=== PATIENT | male | born 1970 | race Caucasian/White ===

== ENCOUNTER 2022-01-02 09:15 | Inpatient (IN) | payer MEDICAID, OTHER ==
[~2022-01-02] VITALS: Ht 167.6 cm; Wt 92.5 kg
[~2022-01-02 09:15] MED LIST: ETOMIDATE 2MG/ML 10ML VIAL IV ONE; SUCCINYLCHOLINE CHLORIDE 200MG/10ML IV ONE
[2022-01-02 09:47] LABS: HEMATOCRIT. 28.8 % (42.0-52.0); MEAN CORPUSCULAR HEMOGLOBIN 35.8 pg (28.0-32.0); MEAN CORPUSCULAR VOLUME 103.5 fL (80.0-94.0); MEAN PLATELET VOLUME 7.6 fl (7.4-10.4); RED BLOOD CELL COUNT 2.78 mill/uL (4.7-6.1); RED CELL DISTRIBUTION WIDTH 16.4 % (11.6-14.6)
[2022-01-02 09:53] LABS: CHLORIDE 111 mEq/L (98-107)
[2022-01-02 10:01] LABS: PLATELET 37 x1000/uL (130-400)
[2022-01-02 10:11] LABS: ETHANOL BLOOD 410 mg/dL
[2022-01-02 10:40] LABS: PLATELET ESTIMATE MARKEDLY DECREASED
[2022-01-02] MEDS ORDERED: SODIUM CHLORIDE 0.9% 1,000 ML IV ONE ×2 (11:45→19:00)
[2022-01-02] MEDS ORDERED: LORAZEPAM 2MG/ML CPJ IV ONE ×2 (19:00→19:45)
[2022-01-02] MEDS ORDERED: CHLORDIAZEPOXIDE 25MG CAPSULE PO ONE (19:00)
[2022-01-02] MEDS ORDERED: DIAZEPAM 5 MG/ML 2ML CPJ IV PRN ×2 (20:00→20:30)
[2022-01-02] MEDS ORDERED: HYDROMORPHONE HCL/PF 2MG/ML CPJ IV ONE (20:00)
[2022-01-02] MEDS ORDERED: IPRATROPIUM/ALBUTEROL 0.5-3(2.5)MG/3ML NEB NEB PRN (21:00)
[2022-01-02] MEDS ORDERED: LORAZEPAM 2MG/ML CPJ IV PRN (21:00)
[2022-01-02] MEDS ORDERED: ACETAMINOPHEN 325MG TABLET PO PRN (21:00)
[2022-01-02] MEDS ORDERED: DOCUSATE SODIUM 100MG CAPSULE PO PRN (21:00)
[2022-01-02] MEDS ORDERED: MAGNESIUM/ALUMINUM HYDROXIDE/SIMETHICONE 30ML UDC PO PRN (21:00)
[2022-01-02] MEDS ORDERED: ONDANSETRON HCL 4MG/2ML INJ IV PRN (21:00)
[2022-01-02] MEDS ORDERED: GUAIFENESIN 200MG/10ML SUGAR FREE UDC PO PRN (21:00)
[2022-01-02] MEDS ORDERED: NITROGLYCERIN 0.4MG TABLET SL SL PRN (21:00)
[2022-01-02] MEDS ORDERED: CLONIDINE 0.1MG TABLET PO PRN (21:00)
[2022-01-02] MEDS ORDERED: PHENOBARBITAL SODIUM 65MG/ML 1ML IV ONE (21:30)
[2022-01-02] MEDS ORDERED: KCL 20MEQ/100ML PREMIX 100 ML IV NR (21:30)
[2022-01-02 21:45] LABS: TOTAL IRON BINDING CAPACITY 158 ug/dL (250-450)
[2022-01-02] MEDS ORDERED: MVI, ADULT NO.1 10 ML, FOLIC ACID 1 MG, THIAMINE HCL 100 MG in SODIUM CHLORIDE 0.9% 1,0... IV SCH ×4 (22:00)
[2022-01-02 22:07] LABS: FOLIC ACID (FOLATE) SERUM 3.9 ng/mL (>5.38)
[2022-01-02] MEDS: CHLORDIAZEPOXIDE 25MG CAPSULE PO SCH (23:37)
[2022-01-02 23:51] LABS: CREATINE KINASE 50 IU/L (39-308)
[2022-01-02 23:52] LABS: CREATINE KINASE MB FRACTION < 1.0 ng/mL (0.5-3.6)
[2022-01-03] VITALS (58 sets, daily range): BP systolic 79–147; BP diastolic 44–87
[2022-01-03] MEDS ORDERED: PHENOBARBITAL SODIUM 65MG/ML 1ML IV SCH
[2022-01-03] MEDS ORDERED: PHENOBARBITAL SODIUM 130MG/ML 1ML IV SCH (01:15)
[2022-01-03] MEDS ORDERED: ETOMIDATE 2MG/ML 10ML VIAL IV ONE (03:30)
[2022-01-03] MEDS ORDERED: SUCCINYLCHOLINE CHLORIDE 200MG/10ML IV ONE (03:30)
[2022-01-03] MEDS ORDERED: PROPOFOL 10MG/ML 100ML 100 ML IV ONE (03:45)
[2022-01-03] MEDS ORDERED: LORAZEPAM 2MG/ML CPJ IV ONE (03:45)
[2022-01-03 04:32] LABS: BG BASE EXCESS -5.6 mmol/L (-2.0-2.0); BG CARBOXYHEMOGLOBIN 0.3 % (0.5-1.5); BG DEOXYHEMOGLOBIN 3.1 % (0.0-5.0); BG FRACTION INSPIRED OXYGEN 80; BG HCO3 ACT 17.5 mmol/L (22.0-26.0); BG METHEMOGLOBIN 1.4 % (0.0-1.5); BG OXYGEN SATURATION 96.8 % (92.0-98.5); BG OXYHEMOGLOBIN 95.2 % (94.0-97.0); BG PCO2 27.3 mmHg (35.0-45.0); BG PH 7.425 (7.350-7.450); BG PO2 102.4 mmHg (75.0-100.0); BG SAMPLE SITE LEFT RADIAL; BG TOTAL HEMOGLOBIN 11.3 g/dL (12.0-18.0); BG VENT MODE VENT - AC
[2022-01-03] MEDS: CHLORDIAZEPOXIDE 25MG CAPSULE PO SCH ×4 (06:00→21:34)
[2022-01-03 08:47] LABS: CHLORIDE 114 mEq/L (98-107)
[2022-01-03 08:53] LABS: PHOSPHORUS 2.8 mg/dL (2.5-4.9)
[2022-01-03 08:55] LABS: CREATINE KINASE 70 IU/L (39-308)
[2022-01-03 08:56] LABS: CREATINE KINASE MB FRACTION < 1.0 ng/mL (0.5-3.6)
[2022-01-03 09:08] LABS: HEMATOCRIT. 27.8 % (42.0-52.0); HEMOGLOBIN. 9.5 g/dL (14.0-18.0); MEAN CORPUSCULAR HEMOGLOBIN 35.4 pg (28.0-32.0); MEAN CORPUSCULAR VOLUME 103.5 fL (80.0-94.0); MEAN PLATELET VOLUME 8.4 fl (7.4-10.4); RED BLOOD CELL COUNT 2.68 mill/uL (4.7-6.1); RED CELL DISTRIBUTION WIDTH 16.6 % (11.6-14.6)
[2022-01-03 09:19] LABS: BG BASE EXCESS -2.7 mmol/L (-2.0-2.0); BG CARBOXYHEMOGLOBIN 0.3 % (0.5-1.5); BG DEOXYHEMOGLOBIN 2.1 % (0.0-5.0); BG FRACTION INSPIRED OXYGEN 80; BG HCO3 ACT 19.7 mmol/L (22.0-26.0); BG METHEMOGLOBIN 0.2 % (0.0-1.5); BG OXYGEN SATURATION 97.9 % (92.0-98.5); BG OXYHEMOGLOBIN 97.4 % (94.0-97.0); BG PCO2 26.6 mmHg (35.0-45.0); BG PH 7.488 (7.350-7.450); BG PO2 106.7 mmHg (75.0-100.0); BG SAMPLE SITE LEFT RADIAL; BG TOTAL HEMOGLOBIN 9.8 g/dL (12.0-18.0); BG VENT MODE VENT - AC
[2022-01-03] MEDS: PANTOPRAZOLE SODIUM 40 MG/VIAL IV SCH (09:23)
[2022-01-03] MEDS: PROPOFOL 10MG/ML 100ML 100 ML IV PRN ×4 (09:25→21:41)
[2022-01-03] MEDS: FENTANYL 2500MCG/250ML PMX 250 ML IV PRN (09:26)
[2022-01-03 10:36] LABS: PLATELET ESTIMATE MARKEDLY DECREASED
[2022-01-03 10:37] LABS: PLATELET 25 x1000/uL (130-400)
[2022-01-03] MEDS ORDERED: PROPOFOL 10MG/ML 100ML 100 ML IV PRN (10:45)
[2022-01-03 11:48] LABS: INR 1.8; PROTHROMBIN TIME 18.8 sec (9.6-11.0)
[2022-01-03] MEDS ORDERED: MAGNESIUM 4 G PREMIX 100 ML IV NR (12:30)
[2022-01-03] MEDS: CEFTRIAXONE 1,000 MG in DEXTROSE 5% WATER 50 ML IV SCH (13:13)
[2022-01-03] MEDS: ACETAMINOPHEN 325MG TABLET PO PRN (21:34)
[2022-01-03] MEDS: NOREPINEPHRINE 8 MG in DEXT 5% WATER 242 ML IV PRN (22:08)
[2022-01-04] VITALS (57 sets, daily range): BP systolic 83–128; BP diastolic 41–68
[2022-01-04] MEDS: NOREPINEPHRINE 8 MG in DEXT 5% WATER 242 ML IV PRN (05:44)
[2022-01-04] MEDS: ACETAMINOPHEN 325MG TABLET PO PRN (05:45)
[2022-01-04] MEDS: CHLORDIAZEPOXIDE 25MG CAPSULE PO SCH ×3 (05:45→22:00)
[2022-01-04 08:39] LABS: BG BASE EXCESS -1.6 mmol/L (-2.0-2.0); BG CARBOXYHEMOGLOBIN 0.3 % (0.5-1.5); BG FRACTION INSPIRED OXYGEN 60; BG HCO3 ACT 22.7 mmol/L (22.0-26.0); BG METHEMOGLOBIN 0.2 % (0.0-1.5); BG OXYHEMOGLOBIN 93.5 % (94.0-97.0); BG PCO2 36.7 mmHg (35.0-45.0); BG PO2 76.8 mmHg (75.0-100.0); BG SAMPLE SITE RIGHT RADIAL; BG TOTAL HEMOGLOBIN 10.1 g/dL (12.0-18.0); BG VENT MODE VENT - AC
[2022-01-04] MEDS: PANTOPRAZOLE SODIUM 40 MG/VIAL IV SCH (09:32)
[2022-01-04] MEDS: PROPOFOL 10MG/ML 100ML 100 ML IV PRN ×2 (09:40→11:19)
[2022-01-04] MEDS ORDERED: PROPOFOL 10MG/ML 100ML 100 ML IV PRN ×2 (10:40→11:58)
[2022-01-04] MEDS: MIDODRINE HCL 5MG TABLET PO SCH ×2 (11:18→19:06)
[2022-01-04 11:38] LABS: HEMATOCRIT. 28.5 % (42.0-52.0); HEMOGLOBIN. 9.7 g/dL (14.0-18.0); MEAN CORPUSCULAR HEMOGLOBIN 35.3 pg (28.0-32.0); MEAN CORPUSCULAR VOLUME 103.5 fL (80.0-94.0); MEAN PLATELET VOLUME 9.2 fl (7.4-10.4); RED BLOOD CELL COUNT 2.75 mill/uL (4.7-6.1); RED CELL DISTRIBUTION WIDTH 16.9 % (11.6-14.6)
[2022-01-04 11:46] LABS: PLATELET 37 x1000/uL (130-400)
[2022-01-04 11:58] LABS: CHLORIDE 111 mEq/L (98-107)
[2022-01-04 12:03] LABS: PHOSPHORUS 2.7 mg/dL (2.5-4.9)
[2022-01-04] MEDS: SODIUM CHLORIDE 0.45% 1,000 ML IV SCH (13:55)
[2022-01-04] MEDS: CEFTRIAXONE 1,000 MG in DEXTROSE 5% WATER 50 ML IV SCH (13:56)
[2022-01-04 15:48] LABS: PLATELET ESTIMATE MARKEDLY DECREASED
[2022-01-05] VITALS (76 sets, daily range): BP systolic 83–154; BP diastolic 39–81
[2022-01-05] MEDS: NOREPINEPHRINE 8 MG in DEXT 5% WATER 242 ML IV PRN (00:02)
[2022-01-05] MEDS: MIDODRINE HCL 5MG TABLET PO SCH ×3 (04:38→22:19)
[2022-01-05] MEDS: ACETAMINOPHEN 325MG TABLET PO PRN (04:39)
[2022-01-05] MEDS: CHLORDIAZEPOXIDE 25MG CAPSULE PO SCH ×3 (05:18→22:18)
[2022-01-05 06:13] LABS: HEMATOCRIT. 27.5 % (42.0-52.0); HEMOGLOBIN. 9.4 g/dL (14.0-18.0); MEAN CORPUSCULAR HEMOGLOBIN 35.6 pg (28.0-32.0); MEAN CORPUSCULAR VOLUME 104.7 fL (80.0-94.0); MEAN PLATELET VOLUME 8.8 fl (7.4-10.4); RED BLOOD CELL COUNT 2.62 mill/uL (4.7-6.1); RED CELL DISTRIBUTION WIDTH 15.9 % (11.6-14.6)
[2022-01-05 06:14] LABS: CHLORIDE 109 mEq/L (98-107)
[2022-01-05 06:21] LABS: PHOSPHORUS 1.7 mg/dL (2.5-4.9)
[2022-01-05 06:43] LABS: PLATELET 38 x1000/uL (130-400)
[2022-01-05 07:32] LABS: PLATELET ESTIMATE MARKEDLY DECREASED
[2022-01-05 07:39] LABS: BG BASE EXCESS -2.2 mmol/L (-2.0-2.0); BG CARBOXYHEMOGLOBIN 0.3 % (0.5-1.5); BG METHEMOGLOBIN 0.2 % (0.0-1.5); BG OXYHEMOGLOBIN 93.5 % (94.0-97.0); BG PCO2 35.4 mmHg (35.0-45.0); BG PH 7.411 (7.350-7.450); BG PO2 69.9 mmHg (75.0-100.0); BG SAMPLE SITE RIGHT RADIAL; BG TOTAL HEMOGLOBIN 9.4 g/dL (12.0-18.0); BG VENT MODE VENT - AC
[2022-01-05] MEDS: SODIUM CHLORIDE 0.45% 1,000 ML IV SCH (08:34)
[2022-01-05] MEDS: PANTOPRAZOLE SODIUM 40 MG/VIAL IV SCH (08:35)
[2022-01-05] MEDS ORDERED: LIDOCAINE HCL/PF 1% 10 MG/ML 5ML VIAL ONE (09:58)
[2022-01-05] MEDS ORDERED: POTASSIUM PHOS,M-BASIC-D-BASIC 20 MMOL in DEXT 5% WATER 250 ML IV SCH (10:00)
[2022-01-05] MEDS: CEFTRIAXONE 1,000 MG in DEXTROSE 5% WATER 50 ML IV SCH (13:35)
[2022-01-05] MEDS: METRONIDAZOLE 500 MG PREMIX 100 ML IV SCH (17:39)
[2022-01-05] MEDS: CEFEPIME 2,000 MG in DEXT 5% WATER 100 ML IV SCH (17:39)
[2022-01-05] MEDS: FENTANYL 2500MCG/250ML PMX 250 ML IV PRN (17:40)
[2022-01-06] VITALS (94 sets, daily range): BP systolic 80–133; BP diastolic 40–75
[2022-01-06] MEDS: METRONIDAZOLE 500 MG PREMIX 100 ML IV SCH ×3 (01:52→17:14)
[2022-01-06] MEDS: SODIUM CHLORIDE 0.45% 1,000 ML IV SCH (06:03)
[2022-01-06] MEDS: CEFEPIME 2,000 MG in DEXT 5% WATER 100 ML IV SCH ×2 (06:03→17:14)
[2022-01-06] MEDS: CHLORDIAZEPOXIDE 25MG CAPSULE PO SCH ×3 (06:19→21:24)
[2022-01-06] MEDS: MIDODRINE HCL 5MG TABLET PO SCH ×3 (06:20→21:26)
[2022-01-06] MEDS: PANTOPRAZOLE SODIUM 40 MG/VIAL IV SCH (08:33)
[2022-01-06] MEDS: PROPOFOL 10MG/ML 100ML 100 ML IV PRN ×2 (08:35→17:15)
[2022-01-06 08:45] LABS: BG BASE EXCESS -0.4 mmol/L (-2.0-2.0); BG CARBOXYHEMOGLOBIN 0.3 % (0.5-1.5); BG DEOXYHEMOGLOBIN 5.9 % (0.0-5.0); BG FRACTION INSPIRED OXYGEN 70; BG HCO3 ACT 24.4 mmol/L (22.0-26.0); BG METHEMOGLOBIN 0.8 % (0.0-1.5); BG PCO2 40.5 mmHg (35.0-45.0); BG PH 7.398 (7.350-7.450); BG PO2 69.4 mmHg (75.0-100.0); BG SAMPLE SITE RIGHT RADIAL; BG TOTAL HEMOGLOBIN 9.2 g/dL (12.0-18.0); BG VENT MODE VENT - AC
[2022-01-06] MEDS: ACETYLCYSTEINE 100MG/ML 10% VIAL 4ML INH SCH ×2 (08:55→15:08)
[2022-01-06] MEDS: NOREPINEPHRINE 8 MG in DEXT 5% WATER 242 ML IV PRN (14:48)
[2022-01-06] MEDS: IPRATROPIUM/ALBUTEROL 0.5-3(2.5)MG/3ML NEB HHN SCH ×2 (15:08→20:19)
[2022-01-06 15:37] LABS: HEMATOCRIT. 26.1 % (42.0-52.0); HEMOGLOBIN. 8.9 g/dL (14.0-18.0); MEAN CORPUSCULAR HEMOGLOBIN 35.4 pg (28.0-32.0); MEAN CORPUSCULAR VOLUME 104.2 fL (80.0-94.0); MEAN PLATELET VOLUME 9.2 fl (7.4-10.4); PLATELET 55 x1000/uL (130-400); RED CELL DISTRIBUTION WIDTH 15.6 % (11.6-14.6)
[2022-01-06 15:46] LABS: CHLORIDE 110 mEq/L (98-107)
[2022-01-06 16:30] LABS: PLATELET ESTIMATE DECREASED
[2022-01-06] MEDS: METOCLOPRAMIDE HCL 10MG/2ML VIAL IV SCH (17:14)
[2022-01-06] MEDS ORDERED: METOCLOPRAMIDE HCL 10MG TABLET PO SCH (18:00)
[2022-01-06] MEDS: RIFAXIMIN 550 MG TABLET PO SCH (21:26)
[2022-01-06] MEDS: LACTULOSE 20G/30ML UDC PO SCH (21:26)
[2022-01-07] VITALS (92 sets, daily range): BP systolic 78–137; BP diastolic 38–90
[2022-01-07] MEDS: METOCLOPRAMIDE HCL 10MG/2ML VIAL IV SCH ×4 (00:41→17:12)
[2022-01-07] MEDS: FENTANYL 2500MCG/250ML PMX 250 ML IV PRN (00:43)
[2022-01-07] MEDS: SODIUM CHLORIDE 0.45% 1,000 ML IV SCH (00:44)
[2022-01-07] MEDS: METRONIDAZOLE 500 MG PREMIX 100 ML IV SCH ×3 (01:01→17:13)
[2022-01-07] MEDS: ACETYLCYSTEINE 100MG/ML 10% VIAL 4ML INH SCH ×3 (01:26→16:46)
[2022-01-07] MEDS: IPRATROPIUM/ALBUTEROL 0.5-3(2.5)MG/3ML NEB HHN SCH ×4 (01:26→21:19)
[2022-01-07] MEDS: MIDODRINE HCL 5MG TABLET PO SCH ×3 (05:46→21:05)
[2022-01-07] MEDS: CHLORDIAZEPOXIDE 25MG CAPSULE PO SCH ×3 (05:47→21:05)
[2022-01-07] MEDS: LACTULOSE 20G/30ML UDC PO SCH ×3 (05:47→21:04)
[2022-01-07] MEDS: CEFEPIME 2,000 MG in DEXT 5% WATER 100 ML IV SCH ×2 (05:48→16:51)
[2022-01-07 06:14] LABS: INR 1.8; PROTHROMBIN TIME 18.2 sec (9.6-11.0)
[2022-01-07 06:26] LABS: HEMATOCRIT. 24.6 % (42.0-52.0); HEMOGLOBIN. 8.6 g/dL (14.0-18.0); MEAN CORPUSCULAR VOLUME 103.6 fL (80.0-94.0); MEAN PLATELET VOLUME 10.3 fl (7.4-10.4); PLATELET 63 x1000/uL (130-400); RED BLOOD CELL COUNT 2.37 mill/uL (4.7-6.1); RED CELL DISTRIBUTION WIDTH 16.1 % (11.6-14.6)
[2022-01-07 06:38] LABS: FERRITIN 247 ng/mL (22-322)
[2022-01-07 06:50] LABS: HEPATITIS B SURFACE ANTIGEN NEGATIVE
[2022-01-07 08:20] LABS: BG BASE EXCESS -7.1 mmol/L (-2.0-2.0); BG CARBOXYHEMOGLOBIN 0.3 % (0.5-1.5); BG DEOXYHEMOGLOBIN 5.7 % (0.0-5.0); BG FRACTION INSPIRED OXYGEN 80; BG HCO3 ACT 18.9 mmol/L (22.0-26.0); BG METHEMOGLOBIN 0.3 % (0.0-1.5); BG OXYGEN SATURATION 94.3 % (92.0-98.5); BG OXYHEMOGLOBIN 93.7 % (94.0-97.0); BG PCO2 40.3 mmHg (35.0-45.0); BG PO2 75.5 mmHg (75.0-100.0); BG SAMPLE SITE RIGHT RADIAL; BG TOTAL HEMOGLOBIN 9.2 g/dL (12.0-18.0); BG TOTAL RESPIRATORY RATE 17 b/min; BG VENT MODE VENT - AC
[2022-01-07] MEDS: PANTOPRAZOLE SODIUM 40 MG/VIAL IV SCH (08:35)
[2022-01-07] MEDS: THIAMINE HCL 100MG TABLET PO SCH (08:35)
[2022-01-07] MEDS: FOLIC ACID 1MG TABLET PO SCH (08:35)
[2022-01-07] MEDS: RIFAXIMIN 550 MG TABLET PO SCH ×2 (08:36→21:05)
[2022-01-07] MEDS: MULTIVITAMINS,THER W-MINERALS TABLET PO SCH (08:36)
[2022-01-07] MEDS: ACETAMINOPHEN 325MG TABLET PO PRN ×2 (08:59→13:50)
[2022-01-07] MEDS: NOREPINEPHRINE 8 MG in DEXT 5% WATER 242 ML IV PRN (10:33)
[2022-01-07 12:49] LABS: PLATELET ESTIMATE MARKEDLY DECREASED
[2022-01-08] VITALS (97 sets, daily range): BP systolic 88–141; BP diastolic 41–74
[2022-01-08] MEDS: METOCLOPRAMIDE HCL 10MG/2ML VIAL IV SCH ×4 (00:24→18:02)
[2022-01-08] MEDS: METRONIDAZOLE 500 MG PREMIX 100 ML IV SCH ×3 (02:00→18:40)
[2022-01-08] MEDS: IPRATROPIUM/ALBUTEROL 0.5-3(2.5)MG/3ML NEB HHN SCH ×4 (02:06→20:38)
[2022-01-08] MEDS: ACETYLCYSTEINE 100MG/ML 10% VIAL 4ML INH SCH ×4 (02:06→20:38)
[2022-01-08] MEDS: NOREPINEPHRINE 8 MG in DEXT 5% WATER 242 ML IV PRN ×2 (03:05→18:48)
[2022-01-08] MEDS: CEFEPIME 2,000 MG in DEXT 5% WATER 100 ML IV SCH ×2 (04:46→18:02)
[2022-01-08] MEDS: LACTULOSE 20G/30ML UDC PO SCH ×3 (05:07→21:18)
[2022-01-08] MEDS: MIDODRINE HCL 5MG TABLET PO SCH ×3 (05:08→21:19)
[2022-01-08 05:35] LABS: HEMATOCRIT. 26.8 % (42.0-52.0); HEMOGLOBIN. 8.7 g/dL (14.0-18.0); MEAN CORPUSCULAR HEMOGLOBIN 34.6 pg (28.0-32.0); MEAN CORPUSCULAR VOLUME 105.7 fL (80.0-94.0); MEAN PLATELET VOLUME 10.7 fl (7.4-10.4); PLATELET 74 x1000/uL (130-400); RED BLOOD CELL COUNT 2.53 mill/uL (4.7-6.1); RED CELL DISTRIBUTION WIDTH 16.1 % (11.6-14.6)
[2022-01-08 06:11] LABS: BG BASE EXCESS -2.3 mmol/L (-2.0-2.0); BG CARBOXYHEMOGLOBIN 0.6 % (0.5-1.5); BG DEOXYHEMOGLOBIN 0.8 % (0.0-5.0); BG FRACTION INSPIRED OXYGEN 60; BG HCO3 ACT 21.8 mmol/L (22.0-26.0); BG METHEMOGLOBIN 0.1 % (0.0-1.5); BG OXYGEN SATURATION 99.2 % (92.0-98.5); BG OXYHEMOGLOBIN 98.5 % (94.0-97.0); BG PCO2 34.8 mmHg (35.0-45.0); BG PH 7.415 (7.350-7.450); BG PO2 143.2 mmHg (75.0-100.0); BG SAMPLE SITE RIGHT RADIAL; BG VENT MODE AC/VC
[2022-01-08] MEDS: FOLIC ACID 1MG TABLET PO SCH (08:36)
[2022-01-08] MEDS: PANTOPRAZOLE SODIUM 40 MG/VIAL IV SCH (08:36)
[2022-01-08] MEDS: MULTIVITAMINS,THER W-MINERALS TABLET PO SCH (08:36)
[2022-01-08] MEDS: THIAMINE HCL 100MG TABLET PO SCH (08:36)
[2022-01-08] MEDS: RIFAXIMIN 550 MG TABLET PO SCH ×2 (08:36→21:18)
[2022-01-08 11:31] LABS: PLATELET ESTIMATE DECREASED
[2022-01-08] MEDS: CHLORDIAZEPOXIDE 25MG CAPSULE PO SCH ×2 (14:54→21:18)
[2022-01-08] MEDS ORDERED: FENTANYL CITRATE/PF 2,500 MCG in SODIUM CHLORIDE 0.9% 200 ML IV PRN (21:00)
[2022-01-08] MEDS ORDERED: FENTANYL 2500MCG/250ML PMX 250 ML IV PRN (21:15)
[2022-01-09] VITALS (96 sets, daily range): BP systolic 88–131; BP diastolic 39–62
[2022-01-09] MEDS: METOCLOPRAMIDE HCL 10MG/2ML VIAL IV SCH ×4 (00:09→17:54)
[2022-01-09] MEDS: METRONIDAZOLE 500 MG PREMIX 100 ML IV SCH ×3 (01:09→18:30)
[2022-01-09] MEDS: IPRATROPIUM/ALBUTEROL 0.5-3(2.5)MG/3ML NEB HHN SCH ×3 (01:17→20:46)
[2022-01-09] MEDS: FENTANYL 2500MCG/250ML PMX 250 ML IV PRN (01:55)
[2022-01-09] MEDS: CEFEPIME 2,000 MG in DEXT 5% WATER 100 ML IV SCH ×2 (04:27→16:25)
[2022-01-09] MEDS: CHLORDIAZEPOXIDE 25MG CAPSULE PO SCH ×3 (05:04→21:20)
[2022-01-09] MEDS: MIDODRINE HCL 5MG TABLET PO SCH ×3 (05:04→21:21)
[2022-01-09] MEDS: LACTULOSE 20G/30ML UDC PO SCH ×3 (05:05→21:20)
[2022-01-09 05:45] LABS: HEMATOCRIT. 26.2 % (42.0-52.0); HEMOGLOBIN. 8.8 g/dL (14.0-18.0); MEAN CORPUSCULAR VOLUME 104.2 fL (80.0-94.0); MEAN PLATELET VOLUME 9.7 fl (7.4-10.4); PLATELET 134 x1000/uL (130-400); RED BLOOD CELL COUNT 2.52 mill/uL (4.7-6.1); RED CELL DISTRIBUTION WIDTH 15.8 % (11.6-14.6)
[2022-01-09 06:07] LABS: PHOSPHORUS 2.7 mg/dL (2.5-4.9)
[2022-01-09] MEDS: ACETYLCYSTEINE 100MG/ML 10% VIAL 4ML INH SCH (08:48)
[2022-01-09] MEDS: THIAMINE HCL 100MG TABLET PO SCH (08:50)
[2022-01-09] MEDS: MULTIVITAMINS,THER W-MINERALS TABLET PO SCH (08:50)
[2022-01-09] MEDS: PANTOPRAZOLE SODIUM 40 MG/VIAL IV SCH (08:50)
[2022-01-09] MEDS: RIFAXIMIN 550 MG TABLET PO SCH ×2 (08:50→21:20)
[2022-01-09] MEDS: FOLIC ACID 1MG TABLET PO SCH (08:50)
[2022-01-09] MEDS ORDERED: LIDOCAINE HCL 1% 30ML VIAL (10MG/ML) ONE (10:38)
[2022-01-09 10:55] LABS: BG BASE EXCESS -6.5 mmol/L (-2.0-2.0); BG CARBOXYHEMOGLOBIN 0.3 % (0.5-1.5); BG FRACTION INSPIRED OXYGEN 60; BG HCO3 ACT 19.1 mmol/L (22.0-26.0); BG METHEMOGLOBIN 0.3 % (0.0-1.5); BG OXYHEMOGLOBIN 93.4 % (94.0-97.0); BG PCO2 38.2 mmHg (35.0-45.0); BG PH 7.317 (7.350-7.450); BG PO2 72.8 mmHg (75.0-100.0); BG SAMPLE SITE LEFT RADIAL; BG TOTAL HEMOGLOBIN 9.5 g/dL (12.0-18.0); BG VENT MODE VENT - AC
[2022-01-09] MEDS: NOREPINEPHRINE 8 MG in DEXT 5% WATER 242 ML IV PRN (11:13)
[2022-01-09] MEDS: SODIUM CHLORIDE 0.9% 1,000 ML IV SCH (11:14)
[2022-01-09] MEDS ORDERED: ALBUMIN HUMAN 25GM/100ML (25%) IV NR (11:30)
[2022-01-09 11:53] LABS: CREATINE KINASE 52 IU/L (39-308)
[2022-01-09 13:19] LABS: PLATELET ESTIMATE NORMAL
[2022-01-09] MEDS: PHYTONADIONE 10MG/ML AMP SUBCUT SCH (14:33)
[2022-01-09 16:46] LABS: CLARITY URINE TURBID (CLEAR); COLOR URINE DARK YELLOW (YELLOW); KETONES URINE TRACE (NEGATIVE); LEUKOCYTE ESTERASE URINE 2+ (NEGATIVE); NITRITE URINE POSITIVE (NEGATIVE); OCCULT BLOOD URINE 2+ (NEGATIVE); PROTEIN URINE 2+ (NEGATIVE); SPECIFIC GRAVITY URINE 1.029 (1.005-1.030)
[2022-01-10] VITALS (95 sets, daily range): BP systolic 91–152; BP diastolic 37–123
[2022-01-10] MEDS: METOCLOPRAMIDE HCL 10MG/2ML VIAL IV SCH ×5 (00:17→23:54)
[2022-01-10] MEDS: METRONIDAZOLE 500 MG PREMIX 100 ML IV SCH ×2 (02:15→08:40)
[2022-01-10] MEDS: IPRATROPIUM/ALBUTEROL 0.5-3(2.5)MG/3ML NEB HHN SCH ×4 (02:19→20:43)
[2022-01-10] MEDS: ACETYLCYSTEINE 100MG/ML 10% VIAL 4ML INH SCH ×3 (02:19→14:26)
[2022-01-10] MEDS: NOREPINEPHRINE 8 MG in DEXT 5% WATER 242 ML IV PRN ×2 (04:00→18:53)
[2022-01-10] MEDS: CEFEPIME 2,000 MG in DEXT 5% WATER 100 ML IV SCH ×2 (05:17→18:50)
[2022-01-10] MEDS: SODIUM CHLORIDE 0.9% 1,000 ML IV SCH (05:17)
[2022-01-10 05:35] LABS: HEMATOCRIT. 24.4 % (42.0-52.0); HEMOGLOBIN. 8.3 g/dL (14.0-18.0); MEAN CORPUSCULAR HEMOGLOBIN 35.4 pg (28.0-32.0); MEAN CORPUSCULAR VOLUME 104.5 fL (80.0-94.0); MEAN PLATELET VOLUME 10.1 fl (7.4-10.4); PLATELET 126 x1000/uL (130-400); RED BLOOD CELL COUNT 2.33 mill/uL (4.7-6.1); RED CELL DISTRIBUTION WIDTH 15.9 % (11.6-14.6)
[2022-01-10 05:55] LABS: PHOSPHORUS 3.3 mg/dL (2.5-4.9)
[2022-01-10 05:56] LABS: INR 2.4; PROTHROMBIN TIME 23.8 sec (9.6-11.0)
[2022-01-10] MEDS: CHLORDIAZEPOXIDE 25MG CAPSULE PO SCH ×3 (06:28→21:28)
[2022-01-10] MEDS: LACTULOSE 20G/30ML UDC PO SCH ×3 (06:28→21:27)
[2022-01-10] MEDS: MIDODRINE HCL 5MG TABLET PO SCH ×3 (06:28→21:28)
[2022-01-10 07:47] LABS: BG BASE EXCESS -8.6 mmol/L (-2.0-2.0); BG CARBOXYHEMOGLOBIN 0.6 % (0.5-1.5); BG DEOXYHEMOGLOBIN 6.4 % (0.0-5.0); BG HCO3 ACT 16.6 mmol/L (22.0-26.0); BG METHEMOGLOBIN 0.3 % (0.0-1.5); BG OXYGEN SATURATION 93.5 % (92.0-98.5); BG OXYHEMOGLOBIN 92.7 % (94.0-97.0); BG PCO2 32.9 mmHg (35.0-45.0); BG PO2 75.8 mmHg (75.0-100.0); BG SAMPLE SITE RIGHT RADIAL; BG TOTAL HEMOGLOBIN 8.7 g/dL (12.0-18.0); BG VENT MODE VENT - AC
[2022-01-10] MEDS: MULTIVITAMINS,THER W-MINERALS TABLET PO SCH (08:40)
[2022-01-10] MEDS: FOLIC ACID 1MG TABLET PO SCH (08:40)
[2022-01-10] MEDS: PHYTONADIONE 10MG/ML AMP SUBCUT SCH (08:40)
[2022-01-10] MEDS: PANTOPRAZOLE SODIUM 40 MG/VIAL IV SCH (08:40)
[2022-01-10] MEDS: THIAMINE HCL 100MG TABLET PO SCH (08:40)
[2022-01-10] MEDS: RIFAXIMIN 550 MG TABLET PO SCH ×2 (08:41→21:28)
[2022-01-10] MEDS: SODIUM BICARBONATE 150 MEQ in DEXTROSE 5% WATER 1,000 ML IV SCH (12:22)
[2022-01-10 13:29] LABS: PLATELET ESTIMATE NORMAL
[2022-01-11] VITALS (97 sets, daily range): BP systolic 88–154; BP diastolic 37–84
[2022-01-11] MEDS: IPRATROPIUM/ALBUTEROL 0.5-3(2.5)MG/3ML NEB HHN SCH ×4 (00:45→20:06)
[2022-01-11] MEDS: ACETYLCYSTEINE 100MG/ML 10% VIAL 4ML INH SCH (00:46)
[2022-01-11 05:20] LABS: HEMATOCRIT. 23.8 % (42.0-52.0); MEAN CORPUSCULAR HEMOGLOBIN 34.9 pg (28.0-32.0); MEAN CORPUSCULAR VOLUME 103.5 fL (80.0-94.0); MEAN PLATELET VOLUME 9.5 fl (7.4-10.4); PLATELET 156 x1000/uL (130-400); RED CELL DISTRIBUTION WIDTH 15.4 % (11.6-14.6)
[2022-01-11 05:26] LABS: INR 2.3; PARTIAL THROMBOPLASTIN TIME 63.6 sec (23.4-31.0); PROTHROMBIN TIME 23.5 sec (9.6-11.0)
[2022-01-11 05:27] LABS: CHLORIDE 105 mEq/L (98-107)
[2022-01-11 05:33] LABS: PHOSPHORUS 3.1 mg/dL (2.5-4.9)
[2022-01-11] MEDS: MIDODRINE HCL 5MG TABLET PO SCH ×3 (06:12→21:36)
[2022-01-11] MEDS: LACTULOSE 20G/30ML UDC PO SCH ×3 (06:12→21:34)
[2022-01-11] MEDS: CHLORDIAZEPOXIDE 25MG CAPSULE PO SCH ×3 (06:12→21:35)
[2022-01-11] MEDS: METOCLOPRAMIDE HCL 10MG/2ML VIAL IV SCH ×4 (06:13→23:39)
[2022-01-11 08:36] LABS: PLATELET ESTIMATE NORMAL
[2022-01-11] MEDS: THIAMINE HCL 100MG TABLET PO SCH (09:34)
[2022-01-11] MEDS: MULTIVITAMINS,THER W-MINERALS TABLET PO SCH (09:34)
[2022-01-11] MEDS: PANTOPRAZOLE SODIUM 40 MG/VIAL IV SCH (09:34)
[2022-01-11] MEDS: FOLIC ACID 1MG TABLET PO SCH (09:34)
[2022-01-11] MEDS: PHYTONADIONE 10MG/ML AMP SUBCUT SCH (09:34)
[2022-01-11] MEDS: RIFAXIMIN 550 MG TABLET PO SCH ×2 (09:34→21:19)
[2022-01-11 10:19] LABS: BG BASE EXCESS -4.9 mmol/L (-2.0-2.0); BG CARBOXYHEMOGLOBIN 0.3 % (0.5-1.5); BG FRACTION INSPIRED OXYGEN 45; BG HCO3 ACT 19.6 mmol/L (22.0-26.0); BG METHEMOGLOBIN 0.3 % (0.0-1.5); BG OXYGEN SATURATION 90.9 % (92.0-98.5); BG OXYHEMOGLOBIN 90.4 % (94.0-97.0); BG PCO2 33.7 mmHg (35.0-45.0); BG PH 7.382 (7.350-7.450); BG PO2 61.4 mmHg (75.0-100.0); BG SAMPLE SITE RIGHT RADIAL; BG TOTAL HEMOGLOBIN 9.4 g/dL (12.0-18.0); BG VENT MODE VENT - AC
[2022-01-11] MEDS: NOREPINEPHRINE 8 MG in DEXT 5% WATER 242 ML IV PRN (12:03)
[2022-01-11] MEDS: SODIUM BICARBONATE 150 MEQ in DEXTROSE 5% WATER 1,000 ML IV SCH (12:04)
[2022-01-12] VITALS (89 sets, daily range): BP systolic 88–147; BP diastolic 43–77
[2022-01-12] MEDS: IPRATROPIUM/ALBUTEROL 0.5-3(2.5)MG/3ML NEB HHN SCH ×4 (01:52→20:49)
[2022-01-12] MEDS: CHLORDIAZEPOXIDE 25MG CAPSULE PO SCH ×3 (05:50→22:12)
[2022-01-12] MEDS: METOCLOPRAMIDE HCL 10MG/2ML VIAL IV SCH ×4 (05:50→23:38)
[2022-01-12] MEDS: LACTULOSE 20G/30ML UDC PO SCH ×3 (05:50→22:12)
[2022-01-12] MEDS: MIDODRINE HCL 5MG TABLET PO SCH ×3 (05:51→22:13)
[2022-01-12 05:57] LABS: CHLORIDE 103 mEq/L (98-107); HEMATOCRIT. 24.8 % (42.0-52.0); HEMOGLOBIN. 8.5 g/dL (14.0-18.0); MEAN CORPUSCULAR HEMOGLOBIN 35.3 pg (28.0-32.0); MEAN PLATELET VOLUME 9.3 fl (7.4-10.4); PLATELET 150 x1000/uL (130-400); RED BLOOD CELL COUNT 2.41 mill/uL (4.7-6.1); RED CELL DISTRIBUTION WIDTH 15.8 % (11.6-14.6)
[2022-01-12 06:04] LABS: PHOSPHORUS 3.9 mg/dL (2.5-4.9)
[2022-01-12] MEDS: MULTIVITAMINS,THER W-MINERALS TABLET PO SCH (08:37)
[2022-01-12] MEDS: THIAMINE HCL 100MG TABLET PO SCH (08:37)
[2022-01-12] MEDS: PHYTONADIONE 10MG/ML AMP SUBCUT SCH (08:37)
[2022-01-12] MEDS: FOLIC ACID 1MG TABLET PO SCH (08:37)
[2022-01-12 08:38] LABS: PLATELET ESTIMATE NORMAL
[2022-01-12] MEDS: PANTOPRAZOLE SODIUM 40 MG/VIAL IV SCH (08:44)
[2022-01-12 09:25] LABS: BG BASE EXCESS -2.6 mmol/L (-2.0-2.0); BG CARBOXYHEMOGLOBIN 0.2 % (0.5-1.5); BG DEOXYHEMOGLOBIN 4.9 % (0.0-5.0); BG FRACTION INSPIRED OXYGEN 55; BG HCO3 ACT 20.6 mmol/L (22.0-26.0); BG METHEMOGLOBIN 0.3 % (0.0-1.5); BG OXYGEN SATURATION 95.1 % (92.0-98.5); BG OXYHEMOGLOBIN 94.6 % (94.0-97.0); BG PCO2 29.6 mmHg (35.0-45.0); BG PO2 74.3 mmHg (75.0-100.0); BG SAMPLE SITE RIGHT RADIAL; BG TOTAL HEMOGLOBIN 9.4 g/dL (12.0-18.0); BG VENT MODE VENT - AC
[2022-01-12] MEDS: SODIUM BICARBONATE 150 MEQ in DEXTROSE 5% WATER 1,000 ML IV SCH (10:21)
[2022-01-12] MEDS ORDERED: NA PHOS,M-B/NA PHOS,DI-BA ENEMA 118ML PR NR (11:15)
[2022-01-12] MEDS ORDERED: LACTULOSE 20G/30ML UDC PO SCH (14:00)
[2022-01-13] VITALS (60 sets, daily range): BP systolic 97–135; BP diastolic 36–70
[2022-01-13] MEDS: IPRATROPIUM/ALBUTEROL 0.5-3(2.5)MG/3ML NEB HHN SCH ×4 (00:28→20:57)
[2022-01-13 05:54] LABS: HEMATOCRIT. 25.3 % (42.0-52.0); HEMOGLOBIN. 8.5 g/dL (14.0-18.0); MEAN CORPUSCULAR HEMOGLOBIN 34.9 pg (28.0-32.0); MEAN CORPUSCULAR VOLUME 103.7 fL (80.0-94.0); MEAN PLATELET VOLUME 8.9 fl (7.4-10.4); PLATELET 154 x1000/uL (130-400); RED BLOOD CELL COUNT 2.44 mill/uL (4.7-6.1); RED CELL DISTRIBUTION WIDTH 15.9 % (11.6-14.6)
[2022-01-13] MEDS: CHLORDIAZEPOXIDE 25MG CAPSULE PO SCH (06:04)
[2022-01-13] MEDS: LACTULOSE 20G/30ML UDC PO SCH ×3 (06:04→20:30)
[2022-01-13 06:05] LABS: INR 2.5; PROTHROMBIN TIME 25.1 sec (9.6-11.0)
[2022-01-13] MEDS: MIDODRINE HCL 5MG TABLET PO SCH ×3 (06:05→20:30)
[2022-01-13] MEDS: METOCLOPRAMIDE HCL 10MG/2ML VIAL IV SCH ×3 (06:52→18:14)
[2022-01-13 08:32] LABS: BG BASE EXCESS -2.9 mmol/L (-2.0-2.0); BG CARBOXYHEMOGLOBIN 0.3 % (0.5-1.5); BG DEOXYHEMOGLOBIN 6.1 % (0.0-5.0); BG HCO3 ACT 21.1 mmol/L (22.0-26.0); BG METHEMOGLOBIN 0.1 % (0.0-1.5); BG OXYGEN SATURATION 93.9 % (92.0-98.5); BG OXYHEMOGLOBIN 93.5 % (94.0-97.0); BG PCO2 33.2 mmHg (35.0-45.0); BG PO2 75.4 mmHg (75.0-100.0); BG SAMPLE SITE RIGHT RADIAL; BG TOTAL HEMOGLOBIN 9.3 g/dL (12.0-18.0); BG VENT MODE VENT - AC
[2022-01-13] MEDS: MULTIVITAMINS,THER W-MINERALS TABLET PO SCH (08:50)
[2022-01-13] MEDS: PANTOPRAZOLE SODIUM 40 MG/VIAL IV SCH (08:50)
[2022-01-13 10:11] LABS: PLATELET ESTIMATE NORMAL
[2022-01-13] MEDS ORDERED: PROPOFOL 10MG/ML 100ML 100 ML IV PRN (11:00)
[2022-01-13] MEDS: FENTANYL 2500MCG/250ML PMX 250 ML IV PRN (11:33)
[2022-01-13] MEDS: CEFEPIME 2,000 MG in DEXT 5% WATER 100 ML IV SCH (12:51)
[2022-01-13] MEDS: PHYTONADIONE 10MG/ML AMP SUBCUT SCH (16:23)
[2022-01-14] VITALS (95 sets, daily range): BP systolic 77–119; BP diastolic 40–70
[2022-01-14] MEDS: METOCLOPRAMIDE HCL 10MG/2ML VIAL IV SCH ×4 (00:44→17:11)
[2022-01-14] MEDS: IPRATROPIUM/ALBUTEROL 0.5-3(2.5)MG/3ML NEB HHN SCH ×4 (01:48→20:05)
[2022-01-14 05:24] LABS: HEMATOCRIT. 23.1 % (42.0-52.0); HEMOGLOBIN. 7.8 g/dL (14.0-18.0); MEAN CORPUSCULAR HEMOGLOBIN 35.2 pg (28.0-32.0); MEAN CORPUSCULAR VOLUME 104.3 fL (80.0-94.0); MEAN PLATELET VOLUME 9.5 fl (7.4-10.4); PLATELET 147 x1000/uL (130-400); RED BLOOD CELL COUNT 2.22 mill/uL (4.7-6.1); RED CELL DISTRIBUTION WIDTH 16.5 % (11.6-14.6)
[2022-01-14 05:43] LABS: PHOSPHORUS 6.9 mg/dL (2.5-4.9)
[2022-01-14] MEDS: LACTULOSE 20G/30ML UDC PO SCH ×3 (06:07→21:44)
[2022-01-14] MEDS: MIDODRINE HCL 5MG TABLET PO SCH ×3 (06:07→21:43)
[2022-01-14] MEDS: PANTOPRAZOLE SODIUM 40 MG/VIAL IV SCH (08:23)
[2022-01-14] MEDS: MULTIVITAMINS,THER W-MINERALS TABLET PO SCH (08:23)
[2022-01-14] MEDS: PHYTONADIONE 10MG/ML AMP SUBCUT SCH (08:23)
[2022-01-14 09:58] LABS: BG BASE EXCESS -4.3 mmol/L (-2.0-2.0); BG CARBOXYHEMOGLOBIN 0.3 % (0.5-1.5); BG DEOXYHEMOGLOBIN 3.7 % (0.0-5.0); BG FRACTION INSPIRED OXYGEN 55; BG OXYGEN SATURATION 96.3 % (92.0-98.5); BG PCO2 33.5 mmHg (35.0-45.0); BG PH 7.394 (7.350-7.450); BG PO2 91.2 mmHg (75.0-100.0); BG SAMPLE SITE RIGHT BRACHIAL; BG TOTAL HEMOGLOBIN 8.3 g/dL (12.0-18.0); BG VENT MODE VENT - AC
[2022-01-14] MEDS: CEFEPIME 2,000 MG in DEXT 5% WATER 100 ML IV SCH (11:28)
[2022-01-14 13:12] LABS: PLATELET ESTIMATE NORMAL
[2022-01-15] VITALS (67 sets, daily range): BP systolic 88–110; BP diastolic 37–80
[2022-01-15] MEDS: METOCLOPRAMIDE HCL 10MG/2ML VIAL IV SCH ×4 (00:09→17:13)
[2022-01-15] MEDS: IPRATROPIUM/ALBUTEROL 0.5-3(2.5)MG/3ML NEB HHN SCH ×4 (00:25→20:19)
[2022-01-15 05:29] LABS: HEMATOCRIT. 23.7 % (42.0-52.0); HEMOGLOBIN. 7.9 g/dL (14.0-18.0); MEAN CORPUSCULAR HEMOGLOBIN 34.8 pg (28.0-32.0); MEAN CORPUSCULAR VOLUME 104.1 fL (80.0-94.0); MEAN PLATELET VOLUME 10.1 fl (7.4-10.4); PLATELET 163 x1000/uL (130-400); RED BLOOD CELL COUNT 2.28 mill/uL (4.7-6.1); RED CELL DISTRIBUTION WIDTH 15.8 % (11.6-14.6)
[2022-01-15] MEDS: LACTULOSE 20G/30ML UDC PO SCH ×3 (05:30→21:56)
[2022-01-15] MEDS: MIDODRINE HCL 5MG TABLET PO SCH ×3 (05:31→21:56)
[2022-01-15 05:37] LABS: CHLORIDE 105 mEq/L (98-107)
[2022-01-15 05:50] LABS: PHOSPHORUS 8.2 mg/dL (2.5-4.9)
[2022-01-15] MEDS: PANTOPRAZOLE SODIUM 40 MG/VIAL IV SCH (08:03)
[2022-01-15] MEDS: PHYTONADIONE 10MG/ML AMP SUBCUT SCH (08:04)
[2022-01-15] MEDS: MULTIVITAMINS,THER W-MINERALS TABLET PO SCH (08:04)
[2022-01-15 09:54] LABS: PLATELET ESTIMATE NORMAL
[2022-01-15 10:22] LABS: BG BASE EXCESS -5.7 mmol/L (-2.0-2.0); BG CARBOXYHEMOGLOBIN 0.2 % (0.5-1.5); BG DEOXYHEMOGLOBIN 5.8 % (0.0-5.0); BG FRACTION INSPIRED OXYGEN 40; BG HCO3 ACT 18.6 mmol/L (22.0-26.0); BG METHEMOGLOBIN 0.3 % (0.0-1.5); BG OXYGEN SATURATION 94.2 % (92.0-98.5); BG OXYHEMOGLOBIN 93.7 % (94.0-97.0); BG PCO2 31.8 mmHg (35.0-45.0); BG PH 7.386 (7.350-7.450); BG PO2 78.1 mmHg (75.0-100.0); BG SAMPLE SITE RIGHT RADIAL; BG TOTAL HEMOGLOBIN 8.5 g/dL (12.0-18.0); BG VENT MODE VENT - AC
[2022-01-15] MEDS: CEFEPIME 1,000 MG in DEXTROSE 5% WATER 50 ML IV SCH (12:01)
[2022-01-15] MEDS: CALCIUM ACETATE 667MG CAPSULE PO SCH ×2 (17:12→18:20)
[2022-01-15] MEDS: FENTANYL 2500MCG/250ML PMX 250 ML IV PRN (19:38)
[2022-01-16] VITALS (57 sets, daily range): BP systolic 87–109; BP diastolic 39–60
[2022-01-16] MEDS: METOCLOPRAMIDE HCL 10MG/2ML VIAL IV SCH ×5 (00:38→23:54)
[2022-01-16] MEDS: IPRATROPIUM/ALBUTEROL 0.5-3(2.5)MG/3ML NEB HHN SCH ×4 (04:05→20:37)
[2022-01-16 06:10] LABS: HEMATOCRIT. 22.4 % (42.0-52.0); HEMOGLOBIN. 7.5 g/dL (14.0-18.0); MEAN CORPUSCULAR HEMOGLOBIN 35.2 pg (28.0-32.0); MEAN CORPUSCULAR VOLUME 105.2 fL (80.0-94.0); MEAN PLATELET VOLUME 10.3 fl (7.4-10.4); PLATELET 179 x1000/uL (130-400); RED BLOOD CELL COUNT 2.13 mill/uL (4.7-6.1); RED CELL DISTRIBUTION WIDTH 15.6 % (11.6-14.6)
[2022-01-16] MEDS: MIDODRINE HCL 5MG TABLET PO SCH ×3 (06:13→22:25)
[2022-01-16] MEDS: LACTULOSE 20G/30ML UDC PO SCH ×3 (06:13→22:25)
[2022-01-16 06:44] LABS: INR 2.3; PROTHROMBIN TIME 23.5 sec (9.6-11.0)
[2022-01-16 07:40] LABS: PHOSPHORUS 9.4 mg/dL (2.5-4.9)
[2022-01-16 07:48] LABS: PLATELET ESTIMATE NORMAL
[2022-01-16] MEDS: CALCIUM ACETATE 667MG CAPSULE PO SCH ×3 (08:20→18:35)
[2022-01-16] MEDS ORDERED: SODIUM BICARBONATE 8.4% 1 MEQ/ML 50ML SYR IV NR (09:00)
[2022-01-16] MEDS: MULTIVITAMINS,THER W-MINERALS TABLET PO SCH (09:08)
[2022-01-16] MEDS: PANTOPRAZOLE SODIUM 40 MG/VIAL IV SCH (09:08)
[2022-01-16] MEDS ORDERED: LORAZEPAM 2MG/ML CPJ IV PRN (11:15)
[2022-01-16] MEDS ORDERED: MORPHINE SULFATE 2 MG/ML CPJ (NOT FOR IM USE) IV PRN (11:15)
[2022-01-16] MEDS ORDERED: NALOXONE HCL 0.4MG/ML VIAL IV PRN (11:30)
[2022-01-16] MEDS: CEFEPIME 1,000 MG in DEXTROSE 5% WATER 50 ML IV SCH (14:35)
[2022-01-17] VITALS (24 sets, daily range): BP systolic 99–124; BP diastolic 44–60
[2022-01-17] MEDS: IPRATROPIUM/ALBUTEROL 0.5-3(2.5)MG/3ML NEB HHN SCH ×4 (02:06→21:02)
[2022-01-17 06:10] LABS: HEMATOCRIT. 22.9 % (42.0-52.0); HEMOGLOBIN. 7.7 g/dL (14.0-18.0); MEAN CORPUSCULAR HEMOGLOBIN 35.1 pg (28.0-32.0); MEAN CORPUSCULAR VOLUME 104.5 fL (80.0-94.0); MEAN PLATELET VOLUME 10.3 fl (7.4-10.4); PLATELET 189 x1000/uL (130-400); RED BLOOD CELL COUNT 2.19 mill/uL (4.7-6.1); RED CELL DISTRIBUTION WIDTH 15.4 % (11.6-14.6)
[2022-01-17] MEDS: LACTULOSE 20G/30ML UDC PO SCH ×3 (06:28→23:05)
[2022-01-17] MEDS: METOCLOPRAMIDE HCL 10MG/2ML VIAL IV SCH ×4 (06:29→23:06)
[2022-01-17] MEDS: MIDODRINE HCL 5MG TABLET PO SCH ×3 (06:29→23:06)
[2022-01-17 07:25] LABS: PLATELET ESTIMATE NORMAL
[2022-01-17 08:44] LABS: BG CARBOXYHEMOGLOBIN 0.3 % (0.5-1.5); BG DEOXYHEMOGLOBIN 3.8 % (0.0-5.0); BG FRACTION INSPIRED OXYGEN 40; BG HCO3 ACT 16.2 mmol/L (22.0-26.0); BG METHEMOGLOBIN 0.2 % (0.0-1.5); BG OXYGEN SATURATION 96.2 % (92.0-98.5); BG OXYHEMOGLOBIN 95.7 % (94.0-97.0); BG PCO2 28.4 mmHg (35.0-45.0); BG PH 7.374 (7.350-7.450); BG PO2 91.9 mmHg (75.0-100.0); BG SAMPLE SITE RIGHT RADIAL; BG TOTAL HEMOGLOBIN 8.6 g/dL (12.0-18.0); BG VENT MODE VENT - AC
[2022-01-17] MEDS ORDERED: SODIUM BICARBONATE 8.4% 1 MEQ/ML 50ML SYR IV SCH (09:00)
[2022-01-17] MEDS ORDERED: SODIUM POLYSTYRENE SULFONATE 15 G/60 ML BOT PO SCH (09:00)
[2022-01-17] MEDS: MULTIVITAMINS,THER W-MINERALS TABLET PO SCH (09:27)
[2022-01-17] MEDS: PANTOPRAZOLE SODIUM 40 MG/VIAL IV SCH (09:27)
[2022-01-17] MEDS: CALCIUM ACETATE 667MG CAPSULE PO SCH ×3 (09:28→18:57)
[2022-01-17] MEDS: CEFEPIME 1,000 MG in DEXTROSE 5% WATER 50 ML IV SCH (14:51)
[2022-01-18] VITALS (27 sets, daily range): BP systolic 98–122; BP diastolic 43–69
[2022-01-18] MEDS: IPRATROPIUM/ALBUTEROL 0.5-3(2.5)MG/3ML NEB HHN SCH ×4 (01:33→20:05)
[2022-01-18] MEDS: METOCLOPRAMIDE HCL 10MG/2ML VIAL IV SCH ×3 (05:27→18:16)
[2022-01-18] MEDS: MIDODRINE HCL 5MG TABLET PO SCH ×3 (05:27→21:48)
[2022-01-18] MEDS: LACTULOSE 20G/30ML UDC PO SCH ×3 (05:27→21:48)
[2022-01-18 05:38] LABS: HEMATOCRIT. 22.6 % (42.0-52.0); HEMOGLOBIN. 7.5 g/dL (14.0-18.0); MEAN CORPUSCULAR HEMOGLOBIN 34.9 pg (28.0-32.0); MEAN CORPUSCULAR VOLUME 105.6 fL (80.0-94.0); MEAN PLATELET VOLUME 10.2 fl (7.4-10.4); PLATELET 187 x1000/uL (130-400); RED BLOOD CELL COUNT 2.14 mill/uL (4.7-6.1); RED CELL DISTRIBUTION WIDTH 15.4 % (11.6-14.6)
[2022-01-18 08:41] LABS: PLATELET ESTIMATE NORMAL
[2022-01-18] MEDS: FOLIC ACID/VITAMIN B COMP W-C TABLET NG SCH (08:54)
[2022-01-18] MEDS: CALCIUM ACETATE 667MG CAPSULE PO SCH ×3 (08:54→18:16)
[2022-01-18] MEDS: PANTOPRAZOLE SODIUM 40 MG/VIAL IV SCH (08:54)
[2022-01-19] VITALS (20 sets, daily range): BP systolic 114–131; BP diastolic 49–108
[2022-01-19] MEDS: IPRATROPIUM/ALBUTEROL 0.5-3(2.5)MG/3ML NEB HHN SCH ×2 (02:08→08:56)
[2022-01-19 06:05] LABS: HEMATOCRIT. 23.4 % (42.0-52.0); HEMOGLOBIN. 7.7 g/dL (14.0-18.0); MEAN CORPUSCULAR HEMOGLOBIN 34.8 pg (28.0-32.0); MEAN CORPUSCULAR VOLUME 105.6 fL (80.0-94.0); MEAN PLATELET VOLUME 10.4 fl (7.4-10.4); PLATELET 193 x1000/uL (130-400); RED BLOOD CELL COUNT 2.22 mill/uL (4.7-6.1); RED CELL DISTRIBUTION WIDTH 15.3 % (11.6-14.6)
[2022-01-19] MEDS: MIDODRINE HCL 5MG TABLET PO SCH (06:10)
[2022-01-19] MEDS: LACTULOSE 20G/30ML UDC PO SCH (06:10)
[2022-01-19] MEDS: METOCLOPRAMIDE HCL 10MG/2ML VIAL IV SCH ×2 (06:11)
[2022-01-19 07:11] LABS: PHOSPHORUS 11.9 mg/dL (2.5-4.9)
[2022-01-19 07:34] LABS: PLATELET ESTIMATE NORMAL
[2022-01-19] MEDS: FOLIC ACID/VITAMIN B COMP W-C TABLET NG SCH (09:23)
[2022-01-19] MEDS: PANTOPRAZOLE SODIUM 40 MG/VIAL IV SCH (09:23)
[2022-01-19] MEDS: CALCIUM ACETATE 667MG CAPSULE PO SCH (09:23)
[2022-01-19] MEDS ORDERED: IOHEXOL-350 100 ML BOTTLE ONE (09:35)
[2022-01-19 10:56] LABS: PROTHROMBIN TIME 21.9 sec (9.6-11.0)
[2022-01-19 10:57] LABS: INR 2.2
[2022-01-19] MEDS ORDERED: MORPHINE SULFATE 250 MG in DEXT 5% WATER 225 ML IV PRN (11:00)
== END 2022-01-19 22:00 | DRG 720 ==
LOC: ER 09:15 → MICUSO 22:50 → 6WST 01-03 03:20 → MICUSO 01-03 03:22 → CVICU 01-15 18:13
PROVIDERS: ADMIT Internal Medicine; ATTEND Internal Medicine
PROC: 5A1955Z Respiratory Ventilation, Greater than 96 Consecutive Hours (ICD-10-PCS; principal; 2022-01-03)
PROC: 0BH17EZ Insertion of Endotracheal Airway into Trachea, Via Natural or Artificial Opening (ICD-10-PCS; 2022-01-03)
PROC: 05HM33Z Insertion of Infusion Device into Right Internal Jugular Vein, Percutaneous Approach (ICD-10-PCS; 2022-01-05)
PROC: B543ZZA Ultrasonography of Right Jugular Veins, Guidance (ICD-10-PCS; 2022-01-05)
DX: A41.9 Sepsis, unspecified organism (principal); N17.0 Acute kidney failure with tubular necrosis; J96.01 Acute respiratory failure with hypoxia; R65.21 Severe sepsis with septic shock; G93.41 Metabolic encephalopathy; D61.818 Other pancytopenia; E43 Unspecified severe protein-calorie malnutrition; K72.90 Hepatic failure, unspecified without coma; K76.6 Portal hypertension; J81.1 Chronic pulmonary edema; J18.9 Pneumonia, unspecified organism; E83.51 Hypocalcemia; F10.229 Alcohol dependence with intoxication, unspecified; F10.239 Alcohol dependence with withdrawal, unspecified; K80.20 Calculus of gallbladder without cholecystitis without obstruction; Z66 Do not resuscitate; E83.39 Other disorders of phosphorus metabolism; E83.42 Hypomagnesemia; I51.7 Cardiomegaly; R23.3 Spontaneous ecchymoses; K70.31 Alcoholic cirrhosis of liver with ascites; D53.9 Nutritional anemia, unspecified; E83.41 Hypermagnesemia; Z68.32 Body mass index [BMI] 32.0-32.9, adult; Z20.822 Contact with and (suspected) exposure to COVID-19; Z59.00 Homelessness unspecified; Z78.1 Physical restraint status; Z82.49 Family history of ischemic heart disease and other diseases of the circulatory system; Z91.15 Patient's noncompliance with renal dialysis; Z99.11 Dependence on respirator [ventilator] status; D52.9 Folate deficiency anemia, unspecified
CPT/HCPCS: 36415; 36600; 70551; 71045; 71275; 74018; 74174; 76705; 76770; 76937; 80048; 80053; 80076; 80320; 81003; 82140; 82248; 82375; 82550; 82553; 82607; 82728; 82746; 82805; 82962; 83540; 83550; 83735; 83880; 84100; 84145; 84478; 84484; 85025; 85044; 86705; 86709; 86803; 87070; 87340; 87426; 93005; 93306; 93923; 93970; 94002; 94003; 94640; 94667; 97161; 99285; A6261; C1725; C9113; J0330; J0692; J0696; J1170; J2060; J2560; J2704; J2765; J3010; J3411; J3430; J3475; J3480; J3490; J7030; J7040; J7050; J7060; J7070; J7608; P9047; Q9967; A4315; G0480